=== PATIENT | male | born 2000 | race Caucasian/White ===

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

== ENCOUNTER → 2023-01-09 | Outpatient (CLI) | payer OTHER | LOC: RAD 18:40 | DX: S69.91XA Unspecified injury of right wrist, hand and finger(s), initial encounter (principal) ==

== ENCOUNTER → 2023-05-31 | Outpatient (CLI) | payer OTHER | LOC: RAD 14:01 | DX: M25.562 Pain in left knee (principal) ==

== ENCOUNTER → 2023-07-18 | Outpatient (REF) | payer OTHER | LOC: LAB 15:52 | DX: L02.31 Cutaneous abscess of buttock (principal) ==

== ENCOUNTER 2023-10-02 17:29 | Emergency (ER) | payer OTHER ==
[2023-10-02] MEDS ORDERED: NS 1,000 ML IV SCH (18:00)
[2023-10-02] MEDS ORDERED: fentaNYL 100 MCG/2 ML VIAL IV ONE (18:00)
[2023-10-02 18:04] LABS: BASO # 0.06 K/mm3 (0.02-0.10); EOS # 0.74 K/mm3 (0.04-0.40); EOS % 7.6 % (0.0-4.0); HEMATOCRIT 39.3 % (36.0-47.0); HEMOGLOBIN 12.7 g/dL (12.5-16.1); LYMPH# 2.18 K/mm3 (1.50-4.00); MEAN CELL VOLUME 87 fl (78-95); MEAN CORPUSCULAR HEMOGLOBIN 28 pg (26-32); MEAN CORPUSCULAR HGB CONC 32 g/dL (33-37); MEAN PLATELET VOLUME 10.5 fl (7.4-10.4); MONO # 0.76 K/mm3 (0.20-0.80); PLATELET COUNT 290 K/mm3 (130-400); RED BLOOD COUNT 4.51 M/mm3 (4.20-5.60); RED CELL DISTRIBUTION WIDTH 14.1 % (11.5-14.5); WHITE BLOOD COUNT 9.8 K/mm3 (4.8-10.8)
[2023-10-02] MEDS ORDERED: Iohexol 300 - 100 ML VIAL IV ONE (18:06)
[2023-10-02 18:13] LABS: ALBUMIN 3.6 g/dL (3.5-5.0)
[2023-10-02 18:14] LABS: CALCIUM 9.2 mg/dL (8.3-10.5)
[2023-10-02 18:15] LABS: TOTAL PROTEIN 7.3 g/dL (6.4-8.3)
[2023-10-02 18:17] LABS: TOTAL BILIRUBIN 0.2 mg/dL (0.2-1.2)
[2023-10-02 18:43] LABS: PH-URINE 6.5 (5.0 - 8.0); URINE APPEARANCE SLIGHTLY CLOUDY (CLEAR); URINE BILIRUBIN NEGATIVE (NEGATIVE); URINE COLOR YELLOW (YELLOW); URINE GLUCOSE NEGATIVE (NEGATIVE); URINE KETONE TRACE (NEGATIVE); URINE PROTEIN(semi-quant) NEGATIVE (NEGATIVE)
[2023-10-02 18:44] LABS: URINE BLOOD 1+ (NEGATIVE); URINE LEUKOCYTE ESTERASE NEGATIVE (NEGATIVE); URINE MUCUS PRESENT (NOT PRESENT); URINE NITRATE NEGATIVE (NEGATIVE)
[2023-10-02] MEDS ORDERED: cefTRIAXone 1 G in Water For Injection,Sterile 10 ML IV ONE (19:00)
[2023-10-02] MEDS ORDERED: CEFDINIR300 MG PO (19:10)
[2023-10-02 19:21] VITALS: BP 123/80
== END 2023-10-02 19:22 | disposition home or self-care (01) ==
LOC: ED 17:29
PROVIDERS: Physician Assistant
DX: N39.0 Urinary tract infection, site not specified (principal)
CPT/HCPCS: J0696; J3010; J7030; Q9967

== ENCOUNTER → 2023-11-21 | Outpatient (CLI) | payer OTHER ==
[~2023-11-21] MED LIST changes: +CEFDINIR300 MG PO
[2023-11-21 10:43] LABS: BASO # 0.07 K/mm3 (0.02-0.10); EOS # 0.67 K/mm3 (0.04-0.40); HEMATOCRIT 44.2 % (36.0-47.0); HEMOGLOBIN 14.2 g/dL (12.5-16.1); MEAN CELL VOLUME 88 fl (78-95); MEAN CORPUSCULAR HEMOGLOBIN 28 pg (26-32); MEAN CORPUSCULAR HGB CONC 32 g/dL (33-37); MEAN PLATELET VOLUME 9.9 fl (7.4-10.4); MONO # 0.57 K/mm3 (0.20-0.80); NEU # 4.54 K/mm3 (1.40-6.50); PLATELET COUNT 335 K/mm3 (130-400); RED BLOOD COUNT 5.04 M/mm3 (4.20-5.60); RED CELL DISTRIBUTION WIDTH 13.5 % (11.5-14.5); WHITE BLOOD COUNT 7.5 K/mm3 (4.8-10.8)
[2023-11-21 10:52] LABS: CALCIUM 9.7 mg/dL (8.3-10.5)
[2023-11-21 10:53] LABS: TOTAL PROTEIN 7.9 g/dL (6.4-8.3)
[2023-11-21 10:55] LABS: TOTAL BILIRUBIN 0.4 mg/dL (0.2-1.2)
== END ==
LOC: LAB 10:23
PROVIDERS: Student in an Organized Health Care Education/Training Program
DX: K50.814 Crohn's disease of both small and large intestine with abscess (principal)